=== PATIENT | female | born 1985 | race Caucasian/White ===

== ENCOUNTER 2016-08-16 12:13 | Emergency (ER) ==
[2016-08-16 12:20] VITALS: BP 129/065
--- NOTE | 2016-08-16 13:23 | PROVIDER DOCUMENTATION ---
HPI-EENT General - General Chief Complaint: Flu Symptoms Stated Complaint: 37 WEEKS PREG/FLU LIKE SX Time Seen by Provider: 08/16/16 13:11 Source: patient Allergies/Adverse Reactions: Patient Allergies Allergy/AdvReac Type Severity Reaction Status Date / Time No Known Allergies Allergy Verified 08/16/16 12:20 Home Medications: Home Medication List Medication Instructions Recorded Confirmed Last Taken Type Acetaminophen [Tylenol] 650 mg PO Q4H PRN PRN 05/20/16 08/16/16 Unknown History Pnv Comb.no58/Iron Bisgly/FA 1 cap PO DAILY 05/20/16 08/16/16 Unknown History [ Capsule] - History of Present Illness-EENT General Nature of Presenting Problem: patient is a 30 y/o f that presents to the Er with runny nose, congestion, fever (low grade), cough, and headache x 24 hours. no n/v/d, shortness of breath, or abdominal pain. She is about 37 weeks . EENT Location: reports: facial Quality of Pain: reports: pressure Severity: reports: mild Onset/Duration: reports: gradual, 24 hours ago Timing: reports: still present, constant Prearrival Treatment: Initiated no prearrival treatment Associated Symptoms: reports: cough, facial pain/swelling, fever, nasal congestion/drainage, sinus infection. denies: sore throat Locality of Occurance: Home Similar Symptoms Previously?: Yes Recently seen or treated by another doctor?: No Review of Systems - Adult - REVIEW OF SYSTEMS - ADULT Constitutional: reports: fever. denies: chills Eyes: reports: no symptoms reported Ears, Nose, Mouth & Throat: reports: sinus problem. denies: ear pain, throat pain, throat swelling Cardiovascular: denies: chest pain, palpitations Respiratory: reports: cough. denies: shortness of breath, wheezing Gastrointestinal: denies: abdominal pain, diarrhea, difficulty swallowing, nausea, vomiting Genitourinary: reports: no symptoms reported Musculoskeletal: reports: no symptoms reported Integumentary: reports: no symptoms reported Neurological: reports: no symptoms reported Psychiatric: reports: no symptoms reported Endocrine: reports: no symptoms reported Hematologic/Lymphatic: reports: no symptoms reported Allergic/Immunologic: reports: no symptoms reported All Other Systems: Reviewed and Negative Past History - Adult - PAST MEDICAL HISTORY-ADULT Review of Records: reports: Old Records Reviewed, Nursing Assessment Review, Medications Reviewed - PRIOR SURGERIES/PROCEDURES Surgical/Procedure History: reports: - IMMUNIZATION STATUS Childhood Immunizations: See Nurse Assessment Flu Vaccine: See Nurse Assessment - FAMILY HISTORY Family History: reviewed, not pertinent - SOCIAL HISTORY Smoking: non-smoker Living Situation: family Physical Exam- EENT - Physical Exam EENT Initial Vital Signs Reviewed: Yes General Appearance: alert, no apparent distress Eye Exam: bilateral eye: normal inspection, PERRL Ear Exam: bilateral ear: canal normal, TM normal Nasal Exam: discharge. negative: foreign body Throat Exam: normal mouth inspection, pharynx normal Neck: full range of motion, normal inspection. negative: lymphadenopathy Respiratory: lungs clear, normal breath sounds, no respiratory distress, no accessory muscle use Cardiovascular: regular rate, rhythm, no edema Abdominal Exam: normal bowel sounds, non tender, soft, no organomegaly, other ( abdomen) Extremity: normal range of motion, normal inspection, no pedal edema, normal capillary refill Integumentary: normal color, warm/dry Neurologic: grossly normal, no motor/sensory deficits Psych/Mental Status: normal mood/affect, normal thought content, normal thought process, oriented x 3 Progress - PLAN OF CARE/RESULTS Progress/Plan/Lab Results: Vital Signs Temp Pulse Resp BP Pulse Ox 08/16/16 12:17 97.8 F 94 H 20 129/065 98 No Known Allergies Allergy (Verified 08/16/16 12:20) Acetaminophen [Tylenol] 650 mg PO Q4H PRN PRN 05/20/16 Pnv Comb.no58/Iron Bisgly/FA [ Capsule] 1 cap PO DAILY 05/20/16 Laboratory 08/16/16 12:55 Influenza A (Rapid) NEGATIVE Influenza B (Rapid) NEGATIVE Orders Category Date Time Status Heart Tones NOW Care 08/16/16 13:19 Active Flu [INFLUENZA SCREEN PL] Stat Lab 08/16/16 12:55 Completed pt will be 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, rx given, pt was clinically stable Departure - Departure Time of Disposition Order: 13:39 DIAGNOSIS: URI (upper respiratory infection) Qualifiers: URI type: acute nasopharyngitis (common cold) Qualified Code(s): J00 - Acute nasopharyngitis [common cold] Qualifiers: Weeks of gestation: 37 weeks Qualified Code(s): Z3A.37 - 37 weeks gestation of Disposition: HOME 01 Certified Medical Emergency: Emergent Condition: Stable Additional Instructions: you can take OTC Robitussin DM or regular, Deylsm cough ED Follow Up Instructions: You have been treated by a care provider in the Emergency Department. These instructions are being provided to you so you can have an understanding of how to care for yourself upon discharge. Upon discharge from the Emergency Department, you are responsible for making arrangements for follow-up care by a physician of your choice. Take all prescribed medications as directed. Return to the Emergency Department immediately for any new or worsening symptoms. You may call the Physician Referral phone number at [phone] to obtain a list of Physicians who are taking new patients. Referrals: Bill Dukes MD [Primary Care Provider] - Call for Appoint. 1-2days Instructions: Upper Respiratory Infection, Adult, [id number] Attestation - Scribe Verification/Attestation Scribe:: Gerard Melendez Acting as Scribe for:: Fe Bernstein Scribe documention review:: This chart was documented by a scribe and accurately reflects the service the provider performed and the decisions made by the provider. Physician Attestation - Physician Attestation I, the provider, attest to the following statement:: Fe Bernstein Physician documentation Attestation:: This documentation recorded by the scribe accurately reflects the service I personally performed and the decisions made by me.
[2016-08-16] MEDS ORDERED: ZITHROMAX PO ONE (13:40)
== END 2016-08-16 13:57 | disposition home or self-care (01) ==
LOC: P.ED 12:13
DX: O26.893 Other specified pregnancy related conditions, third trimester (principal); J00 Acute nasopharyngitis [common cold]; R09.89 Other specified symptoms and signs involving the circulatory and respiratory systems; R09.81 Nasal congestion; R50.9 Fever, unspecified; R05 Cough; R51 Headache; Z3A.37 37 weeks gestation of pregnancy
CPT/HCPCS: 87804; 99283

== ENCOUNTER 2016-08-29 05:11 | Inpatient (IN) ==
[2016-08-29] MEDS ORDERED: LR 1,000 ML IV SCH (05:25)
[2016-08-29] MEDS ORDERED: KEFZOL 1 GM/D5W 1 GM/50 ML IVPB IV PRN (05:25)
[2016-08-29] MEDS ORDERED: BICITRA PO ONE (05:45)
[2016-08-29] MEDS ORDERED: PEPCID IV ONE (05:45)
[2016-08-29] MEDS ORDERED: REGLAN IV ONE (05:45)
[2016-08-29] MEDS ORDERED: PITOCIN ONE (06:22)
[2016-08-29] MEDS ORDERED: FENTANYL ONE (06:22)
[2016-08-29] MEDS ORDERED: BENADRYL ONE (06:22)
[2016-08-29] MEDS ORDERED: DURAMORPH ONE (06:22)
[2016-08-29] MEDS ORDERED: ZOFRAN ONE (06:22)
[2016-08-29] MEDS ORDERED: TORADOL ONE (06:22)
[2016-08-29] MEDS ORDERED: METHERGINE ONE (06:23)
[2016-08-29] MEDS ORDERED: LR 0 ML ONE (06:23)
[2016-08-29] MEDS ORDERED: HEMABATE ONE (06:23)
[2016-08-29 06:28] LABS: URINE SOURCE VOIDED
[2016-08-29 06:28] LABS: MANUAL DIFF NEEDED? NO
[2016-08-29 06:39] LABS: BILIRUBIN URINE NEGATIVE (NEGATIVE); BLOOD URINE NEGATIVE (NEGATIVE); CLARITY CLEAR (CLEAR); COLOR YELLOW; GLUCOSE URINE NEGATIVE (NEGATIVE); LEUKOCYTES URINE TRACE (NEGATIVE); NITRITE URINE NEGATIVE (NEGATIVE); PROTEIN URINE TRACE mg/dL (NEGATIVE); UROBILINOGEN URINE NORMAL
[2016-08-29] MEDS ORDERED: AMBIEN PO PRN (06:39)
[2016-08-29] MEDS ORDERED: HYDROXYZINE PO PRN (06:39)
[2016-08-29] MEDS ORDERED: CYTOTEC PO PRN (06:39)
[2016-08-29] MEDS ORDERED: DEMEROL PO PRN ×2 (06:39)
[2016-08-29] MEDS ORDERED: PITOCIN 20 UNITS/LR 20 UNITS/1,000 ML IV.SOLN IV ONE (06:39)
[2016-08-29] MEDS ORDERED: PHENERGAN IM PRN (06:39)
[2016-08-29] MEDS ORDERED: BOOSTRIX VACCINE IM ONE (06:39)
[2016-08-29] MEDS ORDERED: MYLICON PO PRN (06:39)
[2016-08-29] MEDS ORDERED: DEMEROL IM PRN (06:39)
[2016-08-29] MEDS ORDERED: HYDROXYZINE IM PRN (06:39)
[2016-08-29] MEDS ORDERED: DULCOLAX PR PRN (06:39)
[2016-08-29] MEDS ORDERED: PITOCIN IM PRN (06:39)
[2016-08-29] MEDS ORDERED: PERCOCET-5 PO PRN (06:39)
[2016-08-29] MEDS ORDERED: M-M-R II VACCINE SUBQ ONE (06:39)
[2016-08-29 06:40] LABS: HEMATOCRIT 33.1 % (37.0-47.0); HEMOGLOBIN 10.9 g/dL (12.0-16.0); MCH 29.1 PG (27-31); MCHC 32.9 g/dL (33-37); MCV 88.3 FL (81-99); RBC 3.75 XMIL (4.2-5.4)
[2016-08-29 06:41] LABS: LYMPH% 21.6 % (20.5-51.1); MONO% 7.3 % (1.7-9.3); NEUT% 69.8 % (42.2-75.2); PLT 229 X1000 (130-400)
[2016-08-29 06:42] LABS: BASO% 0.2 % (0.0-0.8); EOS% 0.9 % (0.0-10.0); LYMPH# 2.32 X1000 (1.2-3.4); MONO# 0.78 X1000 (0.11-0.59)
[2016-08-29 07:10] LABS: UR AMPHETAMINES QUAL NONE DETECTED (NONE DETECT); UR BARBITUATES QUAL NONE DETECTED (NONE DETECT); UR BENZODIAZEPIN QUAL NONE DETECTED (NONE DETECT); UR CANNABINOIDS QUAL NONE DETECTED (NONE DETECT); UR COCAINE QUAL NONE DETECTED (NONE DETECT); UR MDMA QUAL NONE DETECTED (NONE DETECT); UR METHADONE QUAL NONE DETECTED (NONE DETECT); UR METHAMPHETAMINE QUAL NONE DETECTED (NONE DETECT); UR OPIATES QUAL NONE DETECTED (NONE DETECT); UR OXYCODONE QUAL NONE DETECTED (NONE DETECT); UR PCP QUAL NONE DETECTED (NONE DETECT); UR TCA QUAL NONE DETECTED (NONE DETECT)
[2016-08-29] MEDS ORDERED: EPHEDRINE ONE (07:57)
[2016-08-29] MEDS ORDERED: VERSED ONE (07:58)
--- NOTE | 2016-08-29 08:43 | OPERATIVE NOTE ---
PROCEDURE DATE : 08/29/2016 SURGEON: Bill Dukes MD REPORTS ANALYSIS MANAGER: JENN Stoll PREOPERATIVE DIAGNOSES: 1. Term intrauterine . 2. Previous section, desires repeat. POSTOPERATIVE DIAGNOSES: 1. Term intrauterine . 2. Previous section, desires repeat. PROCEDURES: 1. Repeat low transverse section. 2. Bilateral tubal ligation. ANESTHESIA: Spinal by Dr. Ortiz. FINDINGS: The patient had a female born that weighed 6 pound 13 ounces. scores were 10 and 10. The patient was noted to have diffuse adhesions of the uterus especially to the left side. We could not really visualize the fallopian tubes after we tied them and put them back inside the pelvis due to the adhesions. DESCRIPTION OF OPERATION: The patient was taken to the operating room and given spinal anesthesia. She was given Ancef IV and prepped and draped in sterile fashion. A Jhaveri catheter was placed in the bladder. Pump hose and stockings were placed. We made a Pfannenstiel skin incision. Sharp dissection was taken down to the fascia. The fascia was dissected over the rectus muscle. The peritoneum was entered and dissected down to create a bladder flap. A low transverse incision was made. The log yard derrick operator's hand was introduced into the uterine cavity. The infant was delivered using fundal pressure. Clear fluid was noted upon entering the amniotic sac. Cord blood was obtained. The placenta was removed. We took down adhesions just so we could get the uterus out and then cleaned this with a clean lap. She still had dense adhesions along the left side. The incision was closed in a double layer closure with #1 chromic suture. Each tube was then picked up and double ligated with 0 plain suture, cut, and sent to pathology for identification. The uterus was placed back in its anatomic position. We could visualize the right side but could not the left side due to the adhesions around the round ligament and broad ligament at this area. Irrigation was done. Good hemostasis was obtained as best as we could see. The peritoneum was closed with 0 chromic suture. Hemostasis was maintained with the Bovie. The fascia was closed with #1 Vicryl. 3-0 Vicryl was used subcuticularly and then the skin was closed with 4-0 Biosyn. Estimated blood loss was 500 mL. The mother and were doing well. cc: Bill Dukes MD
--- NOTE | 2016-08-29 08:54 | HISTORY AND PHYSICAL ---
HISTORY OF PRESENT ILLNESS: The patient is a 30-year-old female, 2, para 1-0-0-1, with an EDC of 09/04/2016. She has had a previous section and is admitted at this time for repeat section and tubal ligation. She has had routine care without any significant problems. She has done well during this . She does not want more children. She understands this is permanent with 1 out of 200 failure rate. PAST MEDICAL HISTORY: None. PAST SURGICAL HISTORY: section. MEDICATIONS: vitamins. ALLERGIES: None. PHYSICAL EXAMINATION: GENERAL: A well-developed female. HEENT: Benign. NECK: Supple. LUNGS: Clear. CARDIOVASCULAR: Regular rhythm. ABDOMEN: Soft, nontender. EXTREMITIES: No cyanosis, clubbing or edema. ASSESSMENT AND PLAN: This is a 30-year-old term intrauterine admitted at this time for repeat section and tubal ligation. cc: Bill Dukes MD
[2016-08-29] MEDS ORDERED: NORCO-5 PO PRN (10:13)
[2016-08-29] MEDS ORDERED: ZOFRAN ODT PO PRN (10:13)
[2016-08-29] MEDS ORDERED: BENADRYL IV PRN (10:13)
[2016-08-29] MEDS ORDERED: NARCAN INJ PRN (10:13)
[2016-08-29] MEDS ORDERED: ZOFRAN IV PRN ×2 (10:13)
[2016-08-29] MEDS: MYLICON PO SCH ×4 (11:09→20:00)
[2016-08-29] MEDS: NORCO-10 PO PRN ×3 (12:43→21:36)
[2016-08-29] MEDS: TORADOL IV SCH ×2 (14:04→20:00)
[2016-08-29] MEDS: PITOCIN 10 UNITS/LR 10 UNIT/1,000 ML IV.SOLN IV SCH (20:00)
[2016-08-29] MEDS: PERICOLACE PO SCH (20:32)
[2016-08-30] MEDS: NORCO-10 PO PRN (02:35)
[2016-08-30] MEDS: PITOCIN 10 UNITS/LR 10 UNIT/1,000 ML IV.SOLN IV SCH (04:03)
[2016-08-30 06:04] LABS: HEMATOCRIT 28.1 % (37.0-47.0); HEMOGLOBIN 8.8 g/dL (12.0-16.0); MCH 28.2 PG (27-31); MCHC 31.3 g/dL (33-37); MCV 90.1 FL (81-99); MPV 9.9 FL (7.4-10.4); RBC 3.12 XMIL (4.2-5.4)
[2016-08-30] MEDS ORDERED: LR 1,000 ML IV SCH (06:39)
[2016-08-30] MEDS: PERCOCET-10 PO PRN ×5 (06:46→22:51)
[2016-08-30] MEDS: MYLICON PO SCH ×4 (08:57→21:02)
[2016-08-30] MEDS: MOTRIN PO PRN ×2 (11:26→19:23)
[2016-08-30] MEDS: PERICOLACE PO SCH (21:02)
[2016-08-31] MEDS: MOTRIN PO PRN (04:16)
[2016-08-31] MEDS: PERCOCET-10 PO PRN (04:16)
[2016-08-31 08:00] VITALS: BP 138/72
[2016-08-31] MEDS: NORCO-10 PO PRN (08:11)
[2016-08-31] MEDS ORDERED: HEMOCYTE-F TABLET PO SCH (09:00)
[2016-08-31] MEDS: MYLICON PO SCH (09:47)
--- NOTE | 2016-08-31 11:18 | DISCHARGE SUMMARY ---
ADMISSION DATE: 08/29/2016 DISCHARGE DATE: 08/31/2016 ADMISSION DIAGNOSIS: Term intrauterine with prior desiring repeat and desires sterilization. DISCHARGE DIAGNOSIS: Status post repeat with bilateral tubal ligation. Adhesive disease. HOSPITAL COURSE: The patient was admitted on the for her planned repeat C- section. She underwent this with Dr. Dukes and our nurse practitioner, Megan Ferguson, and ultimately delivered a 6-pound 13 ounce female with Apgars of 10 and 10. The patient was noted to have diffuse adhesions of the uterus most especially to the left side that prevented great visualization. However her postoperative course was benign. By postoperative day 2, she was ambulating and voiding well, passing gas and tolerating a regular diet. Lochia was scant and she was breast feeding without any difficulties and her pain was well controlled on p.o. pain medication. She did desire to go home. LABORATORY VALUES: Significant for a hemoglobin of 8.8 and 28.1 hematocrit on postop day 1, which was down from 10.9 and 33.1. She is advised of iron supplementation. DISPOSITION: Her exam was appropriate for the surgery and she was advised to follow up in the office in 1 week for an incision check. DISCHARGE MEDICATIONS: Ferrous fumarate 1 p.o. daily. Motrin 800 mg, 1 p.o. q.8 hours as needed for pain. She was given 30 of these and Percocet 10/325, 1 tab p.o. q.3h 4 hours as needed for pain. She was given 30 of these. cc: MD Bill Persaud MD MTDD
== END 2016-08-31 11:45 | disposition home or self-care (01) ==
LOC: P.LD 05:11 → P.WC 10:34
PROVIDERS: ADMIT Obstetrics & Gynecology; ATTEND Obstetrics & Gynecology